=== PATIENT | male | born 1970 | race Caucasian/White ===

== ENCOUNTER → 2022-02-20 | Outpatient (CLI) | payer BC ==
--- NOTE | 2022-02-21 00:53 | MR ---
EXAMINATION TYPE: MR shoulder LT wo con DATE OF EXAM: 02/20/2022 COMPARISON: Shoulder radiograph 02/04/2022 HISTORY: Left shoulder pain and limited range of motion for a few years due to history of fall injury . TECHNIQUE: Multiplanar, multisequence imaging of the left shoulder is performed without contrast. FINDINGS: Rotator Cuff: Increased PD signal within the supraspinatus tendon at its insertion. There is narrowin g of the acromiohumeral interval measuring 7 mm appearing. Infraspinatus, teres major and subscapular is tendons are intact. Acromioclavicular Joint: Mild amount of joint fluid with high PD signal edema within the distal clavi billy and acromion. Mild hypertrophy changes of the distal clavicle and acromion are also present. Glenohumeral Joint: Intact. No full-thickness cartilage tears. Labrum: The labrum appears grossly intact given limitation of non-arthrogram study. Biceps Tendon: The long head of biceps is in normal location within bicipital groove. Bone marrow signal: Abnormal high PD signal within the distal acromion and clavicle. Remainder of the osseous structures are within normal limits for bone marrow signal. Other: No additional significant abnormality is appreciated. IMPRESSION: 1. Bony edema within the acromion and distal clavicle most consistent with edema. 2. Supraspinatus tendinosis without evidence for rotator cuff tear. 3. Narrowing of the acromiohumeral which predisposes patients to rotator cuff tears. 4. No evidence for displaced labral tear.
== END | disposition home or self-care (01) ==
LOC: RADMRIMAIN 16:37
PROVIDERS: ATTEND Orthopaedic Surgery
DX: M25.512 Pain in left shoulder (principal); R60.0 Localized edema

== ENCOUNTER → 2022-04-03 | Outpatient (CLI) | payer BC ==
[2022-04-03 22:51] LABS: Basophils # (A) 0.05 X 10*3/uL (0.00-0.10); Basophils % (A) 0.9 %; Eosinophils # (A) 0.12 X 10*3/uL (0.04-0.35); Eosinophils % (A) 2.3 %; HGB 14.2 g/dL (13.0-17.0); Immature Grans, Automated 0.2 %; Lymphocytes # (A) 2.28 X 10*3/uL (0.90-5.00); Lymphocytes % (A) 43.2 %; MCH 29.3 pg (27.0-32.0); MCHC 32.3 g/dL (32.0-37.0); MCV 90.7 fL (80.0-97.0); Mean Platelet Volume 11.1 fL (9.5-12.2); Monocytes # (A) 0.63 X 10*3/uL (0.20-1.00); Monocytes % (A) 11.9 %; NRBC Per 100 WBC 0 /100 WBCS (0.0-0.0); Neutrophils # (A) 2.19 X 10*3/uL (1.80-7.70); Neutrophils % (A) 41.5 %; Platelet Count 239 X 10*3/uL (140-440); RBC 4.85 X 10*6/uL (4.40-5.60); RDW 13.1 % (11.5-14.5); WBC 5.28 X 10*3/uL (4.50-10.00)
[2022-04-03 23:56] LABS: Anion Gap 10.5 mmol/L (10.00-18.00); Carbon Dioxide 25.5 mmol/L (20.0-27.5)
== END | disposition home or self-care (01) ==
LOC: LABPAT 15:48
PROVIDERS: ATTEND Orthopaedic Surgery
DX: Z01.818 Encounter for other preprocedural examination (principal); M75.42 Impingement syndrome of left shoulder; R94.31 Abnormal electrocardiogram [ECG] [EKG]
CPT/HCPCS: 80051; 85025; 93005